=== PATIENT | female | born 1985 | race African-American/Black ===

== ENCOUNTER 2018-11-11 20:53 | Emergency (ER) | payer SELFPAY ==
[2018-11-11 21:00] VITALS: BP 111/69; PULSE 77; RESP 20; TEMP 36.4; O2SAT 100
--- NOTE | 2018-11-11 21:31 | ED.FEMALEGU ---
HPI - Female Genitourinary General Chief complaint: Urogenital-Female Stated complaint: PELVIC PAIN Time Seen by Provider: 11/11/18 21:19 Source: patient Mode of arrival: ambulatory Limitations: no limitations History of Present Illness HPI Narrative: Patient is otherwise healthy 33-year-old female here for evaluation of pelvic pain. Patient states that she is having discomfort in her vagina. She states that she feels like it is not up in the uterus. She has had intercourse recently however did not have any discomfort with intercourse. Does have some vaginal discharge. No vaginal bleeding. No urinary symptoms. No bowel changes. No prior abdominal surgeries. Had a STD back when she was 21 but none recently. She is somewhat concerned about having an STD now. Has not tried anything for symptoms prior to arrival. Related Data Previous Rx's Medication Instructions Recorded metronidazole [Flagyl] 500 mg PO BID 7 Days #14 tab 11/11/18 Allergies Allergy/AdvReac Type Severity Reaction Status Date / Time No Known Drug Allergies Allergy Verified 11/11/18 21:20 Review of Systems Constitutional Denies fever(s) Cardiovascular Denies chest pain Genitourinary Denies dysuria, Reports pelvic pain, Denies flank pain, Denies urinary incontinence, Reports vaginal discharge, Denies vaginal dryness and Denies vaginal odor Integumentary/Breasts Denies rash Hematologic/Lymphatic Denies easy bleeding and Denies easy bruising [facility] Medical History Healthy adult (Acute) Social History Smoking Status: Never smoker Social History Smoking Status: Never smoker Exam Initial Vital Signs Initial Vital Signs: Vital Signs Temperature 97.5 F L 11/11/18 21:00 Pulse Rate 77 11/11/18 21:00 Respiratory Rate 20 11/11/18 21:00 Blood Pressure 111/69 11/11/18 21:00 Pulse Oximetry 100 11/11/18 21:00 Const General: cooperative, healthy appearing, comfortable, well developed, well groomed and No acute distress Orientation: alert and awake GI Inspection: normal to inspection and non-distended Palpation: soft and No firm Speculum Exam - Vagina: normal appearance of the vagina, abnormal vaginal discharge white and kwong, not erythematous and no swelling Speculum Exam - Cervix: normal appearance of the cervix and nontender Bimanual Exam- Vagina & Uterus: normal bimanual exam and No cervical tenderness Skin Lesions: no lesions Rashes: no rashes Neuro General: alert, awake and oriented x3 Cognition: normal cognition Speech: speech normal Extrem General: normal to inspection and capillary refill normal Course Orders Ordered: ED Orders 11/11/18 21:40 Urine Microscopic Stat 11/11/18 21:45 Urine Chlamydia Gonorrhea PCR Stat 11/11/18 22:10 ILEANA Prep Stat Wet Prep Tric BV Arabella Stat Vital Signs - 8 hr 11/11/18 21:00 11/11/18 23:45 Temperature 97.5 F L 97.5 F L Pulse Rate 77 97 H Respiratory Rate 20 16 Blood Pressure 111/69 102/66 Pulse Oximetry 100 96 MDM - Female Genitourinary Lab Data Attestation: I reviewed the patient's lab results. Lab Results 11/11/18 11/11/18 Range/Units 21:40 21:45 Urine RBC 0-1/hpf (0-5/HPF) Urine WBC 0-1/hpf (0-5/HPF) Ur Squamous Epith Cells 1-5 /hpf (0-5/HPF) Urine Bacteria Occasional (0-1) (None) Urine Mucus 2+ H (Negative) Ur Culture Indicated? Cult not indicated Ur Chlamydia DNA (PCR) Not detected N gonorrhoeae DNA (PCR) Not detected Point of Care Testing Test Results Negative Urine Dip Bedside Urine Glucose Negative Bedside Urine Bilirubin - Negative Bedside Urine Ketone +/- 5 Urine Specific [place] 1.030 Bedside Urine Occult Blood - Negative Bedside Urine pH 6.0 Bedside Urine Protein +/- 15 Bedside Urine Urobilinogen +/- 1mg Bedside Urine Nitrite - Negative Bedside Urine Leukocytes - Negative Esterase MDM Narrative Medical decision making narrative: Urine is negative, GC and chlamydia was negative, ILEANA negative. Does have clue cells consistent with bacterial vaginosis. Trichomonas negative. Exam is not consistent with PID. test is negative. Will send home with prescription for Flagyl. She was given return precautions and follow-up instructions. She expressed understanding and agreement with plan. Discharge Plan Departure Patient Disposition: Home Clinical Impression: Bacterial vaginosis Discharge Date/Time: 11/11/18 23:45 Interventions: ED Discharge Assessment Last Done: 11/11/18 23:45 Instructions: DI for Bacterial Vaginosis Activity Restrictions/Additional Instructions: Take the antibiotics as directed. Contact your primary care doctor for a follow-up. Return to the emergency department for any new or worsening symptoms Prescriptions: New metronidazole [Flagyl] 500 mg tablet 500 mg PO BID 7 Days Qty: 14 RF: 0 Stand Alone Forms: Work Release Note
--- NOTE | 2018-11-11 22:10 | PC.NURSE ---
Assisted Dr. Avelar with pelvic exam. Pt tolerated well.
[2018-11-11 22:18] LABS: Bacteria Urine Occasional (0-1); RBC Urine 0-1/HPF (0-5/HPF); Squamous Epithelial Cell Urine 1-5 /HPF (0-5/HPF); WBC Urine 0-1/HPF (0-5/HPF)
[2018-11-11 22:19] LABS: Culture Indicated Urine Cult Not Indicated; Mucus Urine 2+ (Negative)
--- NOTE | 2018-11-11 22:24 | CM.MNRNOTE ---
Dr. Avelar completed pelvic exam with nurse present and assisting. No lesions observed, minimal discharge. Some pelvic pain with pressure.
[2018-11-11 23:29] LABS: Urine N gonorrhoeae NOT DETECTED
[2018-11-11 23:31] LABS: Urine Chlamydia NOT DETECTED
--- NOTE | 2018-11-11 23:42 | PC.NURSE ---
This RN has reviewed student RN charting. I agree with all that has been charted.
[2018-11-11 23:45] VITALS: BP 102/66; PULSE 97; RESP 16; TEMP 36.4; O2SAT 96
== END 2018-11-11 23:45 | disposition home or self-care (01) ==
PROVIDERS: Emergency Provider Emergency Medicine
DX: N76.0 Acute vaginitis (principal)
CPT/HCPCS: 81003; 81015; 81025; 87210; 87220; 87491; 87591; 99282; 99283

== ENCOUNTER 2019-05-05 18:26 | Emergency (ER) | payer SELFPAY ==
[2019-05-05 18:28] VITALS: BP 110/62; PULSE 84; RESP 16; TEMP 37; O2SAT 99; BMI 26.5
--- NOTE | 2019-05-05 18:51 | ED.FEMALEGU ---
HPI - Female Genitourinary General Chief complaint: Urogenital-Female Stated complaint: UTI Time Seen by Provider: 05/05/19 18:27 Source: patient Mode of arrival: Ambulatory Limitations: no limitations History of Present Illness HPI Narrative: 34-year-old female nonsmoker, otherwise healthy presents for evaluation of exposure to a patient with presumed chlamydia. Her significant other was seen and evaluated yesterday and had confirmatory testing demonstrating Chlamydia. The patient feels fine and denies any dysuria, frequency or urgency. She states that she does have a small amount of whitish vaginal discharge but this is not necessarily abnormal for her. She denies any lower abdominal pain, fever, chills, suprapubic pain or flank pain. She feels quite well on the whole but was told be seen MD Complaint: possible STD Onset (ago): hour(s) Severity: mild Relieving factors: none Exacerbating factors: none Vaginal discharge: white Sexual activity: Known STD Exposure Patient : No Related Data Previous Rx's Medication Instructions Recorded doxycycline hyclate 100 mg PO BID #20 tab 05/05/19 metronidazole [Flagyl] 500 mg PO BID #20 tab 05/05/19 ondansetron 4 mg PO TID-QID PRN #10 tab 05/05/19 Allergies Allergy/AdvReac Type Severity Reaction Status Date / Time No Known Drug Allergies Allergy Verified 05/05/19 18:33 Review of Systems Constitutional Constitutional: Denies chills, Denies fatigue, Denies fever(s), Denies frequent falls, Denies lethargy and Denies weakness Eyes Eyes: Denies change in vision, Denies eye discharge, Denies irritation and Denies loss of vision ENT Ears, Nose, Mouth, and Throat: Denies change in voice, Denies dizziness, Denies neck pain, Denies sore throat and Denies throat swelling Cardiovascular Cardiovascular: Denies chest pain, Denies irregular heart rhythm, Denies lightheadedness, Denies palpitations, Denies dyspnea, Denies dyspnea on exertion and Denies orthopnea Respiratory Respiratory: Denies cough, Denies dyspnea, Denies dyspnea on exertion and Denies wheezing Gastrointestinal Gastrointestinal: Denies abdominal pain, Denies change in bowel habits, Denies diarrhea, Denies nausea and Denies vomiting Genitourinary Genitourinary: Denies hematuria, Denies flank pain, Denies urinary incontinence, Denies urinary urgency and Reports vaginal discharge Musculoskeletal Musculoskeletal: Denies back pain, Denies muscle weakness, Denies neck pain, Denies numbness and Denies tingling Integumentary/Breasts Skin/Breast: Denies pruritus, Denies erythema, Denies rash and Denies wounds Neurologic Neurologic: Denies behavioral changes, Denies confusion, Denies dizziness, Denies frequent falls, Denies loss of vision, Denies numbness, Denies tingling and Denies weakness Psychiatric Psychiatric: Denies anxiety, Denies behavioral changes, Denies confusion, Denies depression, Denies homicidal ideation and Denies suicidal ideation Endocrine Endocrine: Denies fatigue, Denies flushing and Denies palpitations Hematologic/Lymphatic Hematologic/Lymphatic: Denies easy bruising Allergic/Immunologic Allergic/Immunologic: Denies urticaria, Denies throat swelling and Denies wheezing Patient History Medical History Healthy adult (Acute) alcohol intake frequency: 0-2 drinks per day Alcohol type: wine Substance Use Type: marijuana Exam Narrative Exam Narrative: GEN: AOx3 and in mild distress EYES: Pupils are equal, round, and reactive to light and accommodation. Extraoccular muscles are intact bilaterally. There is no subconjunctival hemorrhage or exudate. CHEST: Lungs are clear to auscultation bilaterally and free of wheezes, rales, or rhonchi. Heart rate is regular rhythm, there are no murmurs, clicks, rubs, or gallops. There is no chest wall tenderness. ABD: Abdomen is soft and nontender. There is no guarding or rebound. Bowel sounds are normal in all 4 quadrants. There is no mass or organomegaly. EXT: Full painless ROM of all extremities with no loss of sensation or strength. SKIN: Warm, pink, and dry. No erythema or rash Initial Vital Signs Initial Vital Signs: Vital Signs Temperature 98.6 F 05/05/19 18:28 Pulse Rate 84 05/05/19 18:28 Respiratory Rate 16 05/05/19 18:28 Blood Pressure 110/62 05/05/19 18:28 Pulse Oximetry 99 05/05/19 18:28 Course Orders Ordered: ED Orders 05/05/19 18:57 Urine Chlamydia Gonorrhea PCR Stat Discontinued Medications Azithromycin (Zithromax) 1,000 mg PO NOW ONE Stop: 05/05/19 18:59 Last Admin: 05/05/19 20:09 Dose: 1,000 mg Documented by: KAYA Ceftriaxone Sodium (Rocephin) 250 mg IM NOW ONE Stop: 05/05/19 18:59 Last Admin: 05/05/19 20:42 Dose: 250 mg Documented by: KAYA Metronidazole (Metronidazole) 2,000 mg PO NOW ONE Stop: 05/05/19 18:59 Last Admin: 05/05/19 20:09 Dose: 500 mg Documented by: KAYA Ondansetron HCl (Zofran Odt) 4 mg SL NOW ONE Stop: 05/05/19 19:02 Last Admin: 05/05/19 20:09 Dose: 4 mg Documented by: KAYA Vital Signs Vital signs: Vital Signs - 8 hr 05/05/19 18:28 Temperature 98.6 F Pulse Rate 84 Respiratory Rate 16 Blood Pressure 110/62 Pulse Oximetry 99 MDM - Female Genitourinary Lab Data Labs: Lab Results 05/05/19 Range/Units 18:57 Ur Chlamydia DNA (PCR) Not detected N gonorrhoeae DNA (PCR) Not detected Point of Care Testing Test Results Negative Urine Dip Bedside Urine Glucose Negative Bedside Urine Bilirubin - Negative Bedside Urine Ketone - Negative Urine Specific [place] 1.010 Bedside Urine Occult Blood - Negative Bedside Urine pH 6.0 Bedside Urine Protein - Negative Bedside Urine Urobilinogen - Negative Bedside Urine Nitrite - Negative Bedside Urine Leukocytes - Negative Esterase Discharge Plan Departure Patient Disposition: Home Clinical Impression: Cervicitis Discharge Date/Time: 05/05/19 20:56 Instructions: How to Detect and Treat STDs, Chlamydia: The Silent STD Activity Restrictions/Additional Instructions: *You have been diagnosed with [acute cervicitis ] *What to do: *Take medications as directed *Follow up with your primary care provider in 2-3 days, call for an appointment. Let them know you were seen in the Emergency Department and that we ask that you be seen in follow up *Return to ER if you should have any new, worsening or concerning symptoms Prescriptions: New ondansetron 4 mg tablet,disintegrating 4 mg PO TID-QID PRN (Reason: nausea and vomiting) Qty: 10 RF: 0 doxycycline hyclate 100 mg tablet 100 mg PO BID Qty: 20 RF: 0 metronidazole [Flagyl] 500 mg tablet 500 mg PO BID Qty: 20 RF: 0 Referrals: [facility] [Outside]
[2019-05-05] MEDS: ONDANSETRON 4 MG ODT SL (20:09)
[2019-05-05] MEDS: metroNIDAZOLE 500 MG TABLET 2000 MG PO (20:09)
[2019-05-05] MEDS: AZITHROMYCIN 250 MG TABLET 1000 MG PO (20:09)
[2019-05-05 20:36] LABS: Urine N gonorrhoeae NOT DETECTED
[2019-05-05 20:37] LABS: Urine Chlamydia NOT DETECTED
[2019-05-05] MEDS: cefTRIAXone 500 MG VIAL 250 MG IM (20:42)
[2019-05-05 20:55] VITALS: PULSE 66; RESP 18; TEMP 36.6; O2SAT 98
--- NOTE | 2019-05-05 20:55 | PC.NURSE ---
deferred assessment to provider
== END 2019-05-05 20:56 | disposition home or self-care (01) ==
PROVIDERS: Emergency Provider Emergency Medicine
DX: N72 Inflammatory disease of cervix uteri (principal); Z20.2 Contact with and (suspected) exposure to infections with a predominantly sexual mode of transmission
CPT/HCPCS: 81003; 81025; 87491; 87591; 96372; 99282; 99283; J0696

== ENCOUNTER 2022-11-27 21:14 | Emergency (ER) | payer OTHER, SELFPAY ==
[2022-11-27 21:17] VITALS: BP 130/82; PULSE 64; RESP 20; TEMP 36.5; O2SAT 100; BMI 22.1
[2022-11-27 23:16] VITALS: BP 94/64; PULSE 63; RESP 16; O2SAT 100
--- NOTE | 2022-11-27 23:35 | ED.HA ---
HPI - Headache General Chief Complaint: Headache Stated Complaint: Migraine Time Seen by Provider: 11/27/22 22:45 Source: patient Mode of arrival: Ambulatory History of Present Illness HPI Narrative: Patient is a 37-year-old female. Has a history of migraine headaches. Usually uses Imitrex at home but is of this medication. Is here for evaluation of headache that she is had for the past 2 days that is consistent with her prior headaches. No fevers. She is not having any photophobia. Neck pain. Related Data Previous Rx's Medication Instructions Recorded doxycycline hyclate 100 mg tablet 100 mg PO BID #20 tabs 05/05/19 metronidazole 500 mg tablet 500 mg PO BID #20 tabs 05/05/19 (Flagyl) ondansetron 4 mg disintegrating 4 mg PO TID-QID PRN nausea and 05/05/19 tablet vomiting #10 tabs sumatriptan succinate 25 mg tablet See Rx Instructions PO .COMPLEX 11/28/22 (Imitrex) #24 tabs Allergies Allergy/AdvReac Type Severity Reaction Status Date / Time No Known Drug Allergies Allergy Verified 05/05/19 18:33 Review of Systems Constitutional Constitutional: Reports system reviewed and no additional complaints, except as documented Eyes Eyes: Reports system reviewed and no additional complaints, except as documented ENT Ears, Nose, Mouth, and Throat: Reports system reviewed and no additional complaints, except as documented Integumentary/Breasts Skin/Breast: Reports system reviewed and no additional complaints, except as documented Neurologic Neurologic: Reports system reviewed and no additional complaints, except as documented Patient History Medical History Healthy adult Social History Smoking Status: Never smoker Smoking Status: Never smoker alcohol intake frequency: 0-2 drinks per day Alcohol type: wine Substance Use Type: marijuana Exam Initial Vital Signs Initial Vital Signs: Vital Signs Temperature 97.7 F 11/27/22 21:17 Pulse Rate 64 11/27/22 21:17 Respiratory Rate 20 11/27/22 21:17 Blood Pressure 130/82 11/27/22 21:17 Pulse Oximetry 100 11/27/22 21:17 Oxygen Delivery Method Room Air 11/27/22 21:17 Const General: cooperative and comfortable HENMT Head: normal to inspection and normocephalic Resp Effort & Inspection: normal respiratory effort Cardio Rate: regular rate Neuro General: patient alert, patient awake and moves all extremities Speech: speech normal Course Orders Ordered: Discontinued Medications Sumatriptan Succinate (Sumatriptan 6 Mg/0.5 Ml Vial) 6 mg SUBCUT NOW ONE Stop: 11/27/22 23:36 Last Admin: 11/27/22 23:39 Dose: 6 mg Documented By: HELLEN Vital Signs Vital signs: Vital Signs - 8 hr 11/27/22 23:16 11/28/22 00:44 Pulse Rate 63 50 L Respiratory Rate 16 18 Blood Pressure 94/64 115/66 Pulse Oximetry 100 100 Oxygen Delivery Method Room Air Room Air MDM - Headache MDM Narrative Medical decision making narrative: Patient was given Imitrex and she reports that her headache has almost completely resolved. No fevers. No indication for radiologic studies. I will refill her medications. She was given return precautions. She expressed understanding and agreement. Discharge Plan Departure Patient Disposition: Home Clinical Impression: Migraine Instructions: DI for Migraine Activity Restrictions/Additional Instructions: A new prescription for medications was sent to the pharmacy of your choice. Please take them as needed and as directed. Contact your primary doctor for follow-up. Return to the emergency department for new or worsening symptoms. Prescriptions: New sumatriptan succinate [Imitrex] 25 mg tablet See Rx Instructions .ROUTE .COMPLEX Qty: 24 2RF Rx Instructions: take 1 tab at onset of headache; if no relief may repeat 1 tab after at least 2 hrs; max = 4 tabs/24 hr No Action ondansetron 4 mg tablet,disintegrating 4 mg PO TID-QID PRN (Reason: nausea and vomiting) Qty: 10 0RF doxycycline hyclate 100 mg tablet 100 mg PO BID Qty: 20 0RF metronidazole [Flagyl] 500 mg tablet 500 mg PO BID Qty: 20 0RF Stand Alone Forms: Patient Portal/API
[2022-11-27] MEDS: SUMAtriptan 6 MG/0.5 ML VIAL SUBCUT (23:39)
[2022-11-28 00:44] VITALS: BP 115/66; PULSE 50; RESP 18; O2SAT 100
== END 2022-11-28 00:44 | disposition home or self-care (01) ==
PROVIDERS: Emergency Provider Emergency Medicine
DX: G43.909 Migraine, unspecified, not intractable, without status migrainosus (principal)
CPT/HCPCS: 96372; 99281; 99283; J3030

== ENCOUNTER 2023-05-21 18:01 | Emergency (ER) | payer OTHER, MEDICAID, SELFPAY ==
[2023-05-21 18:05] VITALS: BP 113/74; PULSE 58; RESP 15; TEMP 36.6; O2SAT 100; BMI 22.1
--- NOTE | 2023-05-21 18:44 | ED_ITS ---
HPI - Headache General Chief Complaint: Headache Stated Complaint: migraine/V/close to syncope Time Seen by Provider: 05/21/23 18:31 Source: patient Mode of arrival: Wheelchair Limitations: no limitations History of Present Illness HPI Narrative: Patient is a 38-year-old female she does have a history of migraine headaches. She normally takes Imitrex. States that at 1000 hours today she started to have a migraine headache. She is out of her Imitrex. She is also out of her Zofran. She denies fevers. No trauma. She is tried multiple things at home to include ibuprofen and Benadryl and also using icing heat. No numbness and tingling in her extremities. Related Data Previous Rx's Medication Instructions Recorded doxycycline hyclate 100 mg tablet 100 mg PO BID #20 tabs 05/05/19 metronidazole 500 mg tablet 500 mg PO BID #20 tabs 05/05/19 (Flagyl) ondansetron 4 mg disintegrating 4 mg PO TID-QID PRN nausea and 05/05/19 tablet vomiting #10 tabs sumatriptan succinate 25 mg tablet See Rx Instructions PO .COMPLEX 11/28/22 (Imitrex) #24 tabs ondansetron 4 mg disintegrating 4 mg PO Q6H PRN nausea and 05/21/23 tablet vomiting #20 tabs sumatriptan succinate 50 mg tablet See Rx Instructions PO .COMPLEX 05/21/23 (Imitrex) #30 tabs Allergies Allergy/AdvReac Type Severity Reaction Status Date / Time No Known Drug Allergies Allergy Verified 05/21/23 18:05 Review of Systems Constitutional Constitutional: Reports system reviewed and no additional complaints, except as documented Eyes Eyes: Reports system reviewed and no additional complaints, except as documented Musculoskeletal Musculoskeletal: Reports system reviewed and no additional complaints, except as documented Integumentary/Breasts Skin/Breast: Reports system reviewed and no additional complaints, except as documented Neurologic Neurologic: Reports system reviewed and no additional complaints, except as documented Hematologic/Lymphatic On Anticoagulants: No Patient History Medical History Healthy adult Social History Smoking Status: Never smoker Smoking Status: Never smoker alcohol intake frequency: holidays/special occasions only Alcohol type: wine Substance Use Type: does not use Exam Initial Vital Signs Initial Vital Signs: Vital Signs Temperature 97.9 F 05/21/23 18:05 Pulse Rate 58 L 05/21/23 18:05 Respiratory Rate 15 05/21/23 18:05 Blood Pressure 113/74 05/21/23 18:05 Pulse Oximetry 100 05/21/23 18:05 Oxygen Delivery Method Room Air 05/21/23 18:05 HENMT Head: normal to inspection and normocephalic Eyes General: Yes appearance normal, both eyes and all related structures Resp Effort & Inspection: normal respiratory effort Cardio Rate: regular rate GI Inspection: normal to inspection Skin General: no rashes or lesions noted Neuro General: patient alert and patient awake Course Orders Ordered: Discontinued Medications Sodium Chloride (Normal Saline 0.9%) 1,000 mls @ 1,000 mls/hr IV BOLUS ONE Stop: 05/21/23 19:30 Last Infusion: 05/21/23 19:53 Dose: Infused Documented By: Admin: 05/21/23 18:59 Dose: 1,000 mls/hr Documented By: SELMA Ondansetron HCl (Ondansetron 4 Mg/2 Ml Inj) 4 mg IV NOW ONE Stop: 05/21/23 18:46 Last Admin: 05/21/23 19:09 Dose: 4 mg Documented By: SELMA Sumatriptan Succinate (Sumatriptan 6 Mg/0.5 Ml Vial) 6 mg SUBCUT NOW ONE Stop: 05/21/23 18:46 Last Admin: 05/21/23 19:09 Dose: 6 mg Documented By: SELMA Vital Signs Vital signs: Vital Signs - 8 hr 05/21/23 18:05 Temperature 97.9 F Pulse Rate 58 L Respiratory Rate 15 Blood Pressure 113/74 Pulse Oximetry 100 Oxygen Delivery Method Room Air MDM - Headache MDM Narrative Medical decision making narrative: After medications here in the emergency department she reports almost complete resolution of her headache. Imitrex seems to work very well for her. No indication for radiologic studies. Low suspicion for intracranial hemorrhage or meningitis. I will refill her Imitrex and also Zofran. Will discharge patient home with return precautions. She expressed understanding and agreement with itzel pineda Discharge Plan Departure Patient Disposition: Home Clinical Impression: Migraine Instructions: DI for Migraine Activity Restrictions/Additional Instructions: Refills of your headache medicines were sent to the pharmacy of your choice. Please take it as directed. Return to the emergency department for new or worsening symptoms. Prescriptions: New sumatriptan succinate [Imitrex] 50 mg tablet See Rx Instructions .ROUTE .COMPLEX Qty: 30 2RF Rx Instructions: take 1 tab at onset of headache; if no relief may repeat 1 tab after at least 2 hrs; max = 4 tabs/24 hr ondansetron 4 mg tablet,disintegrating 4 mg PO Q6H PRN (Reason: nausea and vomiting) Qty: 20 0RF No Action sumatriptan succinate [Imitrex] 25 mg tablet See Rx Instructions .ROUTE .COMPLEX Qty: 24 2RF Rx Instructions: take 1 tab at onset of headache; if no relief may repeat 1 tab after at least 2 hrs; max = 4 tabs/24 hr ondansetron 4 mg tablet,disintegrating 4 mg PO TID-QID PRN (Reason: nausea and vomiting) Qty: 10 0RF doxycycline hyclate 100 mg tablet 100 mg PO BID Qty: 20 0RF metronidazole [Flagyl] 500 mg tablet 500 mg PO BID Qty: 20 0RF Stand Alone Forms: Patient Portal/API
[2023-05-21] MEDS: SODIUM CHLORIDE 0.9% 1,000 ML 1000 ML IV (18:59)
[2023-05-21] MEDS: ONDANSETRON 4 MG/2 ML INJ IV (19:09)
[2023-05-21] MEDS: SUMAtriptan 6 MG/0.5 ML VIAL SUBCUT (19:09)
[2023-05-21 20:11] VITALS: BP 115/69; PULSE 60; RESP 16; TEMP 36.6; O2SAT 100
== END 2023-05-21 20:13 | disposition home or self-care (01) ==
PROVIDERS: Emergency Provider Emergency Medicine
DX: G43.909 Migraine, unspecified, not intractable, without status migrainosus (principal)
CPT/HCPCS: 36415; 96372; 96374; 99284; J2405; J3030

== ENCOUNTER 2024-01-27 20:37 | Emergency (ER) | payer OTHER, MEDICAID, SELFPAY ==
[2024-01-27 20:41] VITALS: BP 114/72; PULSE 60; RESP 14; TEMP 36.4; O2SAT 100; BMI 22.8
[2024-01-27] MEDS: METOCLOPRAMIDE 10 MG/2 ML INJ IV (21:03)
[2024-01-27] MEDS: ACETAMINOPHEN IV 1,000 MG/100 ML VIAL 400 MG IV (21:03)
[2024-01-27] MEDS: diphenhydrAMINE 50 MG/ML VIAL IV (21:03)
[2024-01-27] MEDS: SODIUM CHLORIDE 0.9% 1,000 ML 1000 ML IV (21:03)
--- NOTE | 2024-01-27 21:41 | ED.HA ---
HPI - Headache General Chief Complaint: Headache Stated Complaint: migraine, loc Time Seen by Provider: 01/27/24 20:38 Mode of arrival: Ambulatory History of Present Illness HPI Narrative: 38-year-old female with history of migraine headaches presents by private vehicle from home for migraine headache. Patient states she ran out of her Imitrex and Zofran for home and her migraine was unable to be controlled at home. She states that this feels similar to previous migraines. Related Data Previous Rx's Medication Instructions Recorded doxycycline hyclate 100 mg tablet 100 mg PO BID #20 tabs 05/05/19 metronidazole 500 mg tablet 500 mg PO BID #20 tabs 05/05/19 (Flagyl) ondansetron 4 mg disintegrating 4 mg PO TID-QID PRN nausea and 05/05/19 tablet vomiting #10 tabs sumatriptan succinate 25 mg tablet See Rx Instructions PO .COMPLEX 11/28/22 (Imitrex) #24 tabs ondansetron 4 mg disintegrating 4 mg PO Q6H PRN nausea and 05/21/23 tablet vomiting #20 tabs sumatriptan succinate 50 mg tablet See Rx Instructions PO .COMPLEX 05/21/23 (Imitrex) #30 tabs ondansetron 4 mg disintegrating 4 mg PO Q8H PRN nausea and 01/27/24 tablet vomiting #60 tabs sumatriptan succinate 50 mg tablet See Rx Instructions PO .COMPLEX 01/27/24 #60 tabs Allergies Allergy/AdvReac Type Severity Reaction Status Date / Time No Known Drug Allergies Allergy Verified 05/21/23 18:05 Patient History Medical History Healthy adult Social History Smoking Status: Never smoker Smoking Status: Never smoker alcohol intake frequency: holidays/special occasions only Alcohol type: wine Substance Use Type: marijuana Exam Initial Vital Signs Initial Vital Signs: Vital Signs Temperature 97.6 F 01/27/24 20:41 Pulse Rate 60 01/27/24 20:41 Respiratory Rate 14 01/27/24 20:41 Blood Pressure 114/72 01/27/24 20:41 Pulse Oximetry 100 01/27/24 20:41 Oxygen Delivery Method Room Air 01/27/24 20:41 Const: Awake, alert, uncomfortable, in pain Cardiac: regular rate, regular rhythm Skin: Warm, Dry, intact, no rashes Neuro: AO x3, CN II-XII grossly intact, moves all extremities Course Orders Ordered: Discontinued Medications Diphenhydramine HCl (Diphenhydramine 50 Mg/Ml Vial) 50 mg IV NOW ONE Stop: 01/27/24 20:53 Last Admin: 01/27/24 21:03 Dose: 50 mg Documented By: Acetaminophen (Ofirmev) 1,000 mg in 100 mls @ 400 mls/hr IV NOW ONE Stop: 01/27/24 21:06 Last Infusion: 01/27/24 21:33 Dose: Infused Documented By: Admin: 01/27/24 21:03 Dose: 400 mls/hr Documented By: Sodium Chloride (Normal Saline 0.9%) 1,000 mls @ 1,000 mls/hr IV BOLUS ONE Stop: 01/27/24 21:51 Last Infusion: 01/27/24 22:29 Dose: Infused Documented By: Admin: 01/27/24 21:03 Dose: 1,000 mls/hr Documented By: Metoclopramide HCl (Metoclopramide 10 Mg/2 Ml Inj) 10 mg IV NOW ONE Stop: 01/27/24 20:53 Last Admin: 01/27/24 21:03 Dose: 10 mg Documented By: Vital Signs Vital signs: Vital Signs - 8 hr 01/27/24 20:41 01/27/24 22:42 Temperature 97.6 F Pulse Rate 60 63 Respiratory Rate 14 18 Blood Pressure 114/72 109/56 L Pulse Oximetry 100 100 Oxygen Delivery Method Room Air Room Air MDM - Headache MDM Narrative Medical decision making narrative: Migraine headache similar to previous. Patient reported resolution of symptoms after migraine cocktail, reported feeling significantly better. No indication for imaging at this time. Patient requested that a refill of her Imitrex and Zofran be sent to the pharmacy, which was done. Discharge Plan Departure Patient Disposition: Home Clinical Impression: Migraine Instructions: DI for Migraine Activity Restrictions/Additional Instructions: A refill of your migraine medication has been sent to the [facility] in [place]. Follow up with your primary care doctor. Prescriptions: New sumatriptan succinate 50 mg tablet See Rx Instructions .ROUTE .COMPLEX Qty: 60 0RF Rx Instructions: take 1 tab at onset of headache; if no relief may repeat 1 tab after at least 2 hrs; max = 4 tabs/24 hr ondansetron 4 mg tablet,disintegrating 4 mg PO Q8H PRN (Reason: nausea and vomiting) Qty: 60 0RF No Action sumatriptan succinate [Imitrex] 25 mg tablet See Rx Instructions .ROUTE .COMPLEX Qty: 24 2RF Rx Instructions: take 1 tab at onset of headache; if no relief may repeat 1 tab after at least 2 hrs; max = 4 tabs/24 hr ondansetron 4 mg tablet,disintegrating 4 mg PO TID-QID PRN (Reason: nausea and vomiting) Qty: 10 0RF doxycycline hyclate 100 mg tablet 100 mg PO BID Qty: 20 0RF metronidazole [Flagyl] 500 mg tablet 500 mg PO BID Qty: 20 0RF sumatriptan succinate [Imitrex] 50 mg tablet See Rx Instructions .ROUTE .COMPLEX Qty: 30 2RF Rx Instructions: take 1 tab at onset of headache; if no relief may repeat 1 tab after at least 2 hrs; max = 4 tabs/24 hr ondansetron 4 mg tablet,disintegrating 4 mg PO Q6H PRN (Reason: nausea and vomiting) Qty: 20 0RF Referrals: Miscellaneous,Doctor, MD [Primary Care Provider] - Stand Alone Forms: Patient Portal/API
[2024-01-27 22:42] VITALS: BP 109/56; PULSE 63; RESP 18; O2SAT 100
== END 2024-01-27 22:43 | disposition home or self-care (01) ==
PROVIDERS: Emergency Provider Emergency Medicine
DX: G43.909 Migraine, unspecified, not intractable, without status migrainosus (principal)
CPT/HCPCS: 96365; 96375; 99283; 99284; J0136; J1200; J2765